=== PATIENT | male | born 1950 | race Caucasian/White ===

== ENCOUNTER → 2017-04-16 | Outpatient (CLI) | payer OTHER | LOC: RAD 14:09 | DX: J44.9 Chronic obstructive pulmonary disease, unspecified (principal) ==

== ENCOUNTER → 2018-07-13 | Outpatient (CLI) | payer OTHER ==
--- NOTE | ~2018-07-13 | 2DMMODE ---
[facility] [place] [address] 2 D/M-MODE ECHOCARDIOGRAM Name: MAYA SHUKLA Room #: REG [facility]#: [id number] Admission: 07/13/18 Attend Phys: Gumaro Hutchinson MD Discharge: Date of : 48 Date of Service: 07/13/18 1151 Report #: [id number] THIS REPORT FOR: //name// APPROVED REPORT Study performed: 07/13/2018 10:43:30 EXAM: Comprehensive 2D, Doppler, and color-flow Echocardiogram Patient Location: Out-Patient Room #: Echo lab 2 Status: routine BSA: 2.29 HR: 72 bpm Other Information Study Quality: Fair Indications Atrial Fibrillation CAD Hypertension/HDD Volumes Left Atrial Volume (Systole) Single Plane 4CH: 59.80 mL Single Plane 2CH: 67.85 mL LA ESV Index: 33.00 mL/m2 Aortic Valve AoV Peak Junior.: 1.39 m/s AO Peak Gr.: 7.69 mmHg LVOT Max P.99 mmHg LVOT Max V: 1.00 m/s Mitral Valve E/A Ratio: 0.7 MV Decel. Time: 269.43 ms MV E Max Junior.: 0.73 m/s MV A Junior.: 1.02 m/s MV PHT: 78.13 ms IVRT: 115.34 ms Pulmonary Valve PV Peak Junior.: 0.95 m/s PV Peak Gr.: 3.61 mmHg Pulmonary Vein [facility] [address] [place] [address] 2 D/M-MODE ECHOCARDIOGRAM Name: VAZQUEZMAYA Room #: REG CL [facility]#: [id number] Admission: 07/13/18 Attend Phys: Gumaro Hutchinson MD Discharge: Date of : 48 Date of Service: 07/13/18 1151 Report #: [id number] P Vein S: 0.38 m/s P Vein A: 0.24 m/s P Vein D: 0.35 m/s P Vein A Dur.: 115.3 msec P Vein S/D Ratio: 1.09 Left Ventricle The left ventricle is normal size. There is normal LV segmental wall motion. There is normal left ventricular wall thickness. The left ventricular systolic function is normal. The left ventricular ejection fraction is within the normal range. LVEF is 55-60%. Grade I - abnormal relaxation pattern. Right Ventricle The right ventricle is normal size. The right ventricular systolic function is normal. Atria Left atrium is at the upper limits of normal. The right atrium size is normal. Aortic Valve Aortic valve is calcified. The aortic valve is normal in structure. Mild aortic regurgitation. There is no aortic valvular stenosis. Mitral Valve The mitral valve is normal in structure. Mild mitral regurgitation. No evidence of mitral valve stenosis. Tricuspid Valve The tricuspid valve is normal in structure. There is no tricuspid valve regurgitation noted. Pulmonic Valve The pulmonary valve is normal in structure. There is no pulmonic valvular regurgitation. Great Vessels The aortic root is normal in size. The inferior vena cava is not well visualized. Pericardium There is no pericardial effusion. <Conclusion> The left ventricle is normal size. The left ventricular systolic function is normal. [facility] [address] [place] [address] 2 D/M-MODE ECHOCARDIOGRAM Name: MAYA SHUKLA Room #: REG [facility]#: [id number] Admission: 07/13/18 Attend Phys: Gumaro Hutchinson MD Discharge: Date of : 48 Date of Service: 07/13/18 115 Report #: [id number] Grade I - abnormal relaxation pattern. The right ventricle is normal size. Left atrium is at the upper limits of normal. Mild aortic regurgitation. Mild mitral regurgitation. <ELECTRONICALLY SIGNED> By: Gumaro Hutchinson MD 07/13/18 115 50 50 Gumaro Hutchinson MD /INF
== END ==
LOC: CV 08:46
DX: I08.0 Rheumatic disorders of both mitral and aortic valves (principal); I48.0 Paroxysmal atrial fibrillation; I25.10 Atherosclerotic heart disease of native coronary artery without angina pectoris; I10 Essential (primary) hypertension

== ENCOUNTER → 2019-08-13 | Outpatient (CLI) | payer OTHER | LOC: CAT 13:03 | DX: Z13.6 Encounter for screening for cardiovascular disorders (principal); E78.00 Pure hypercholesterolemia, unspecified; I25.10 Atherosclerotic heart disease of native coronary artery without angina pectoris ==

== ENCOUNTER → 2019-10-27 | Outpatient (CLI) | payer OTHER | LOC: NUC 08:15 → SJCVCIMAG 09:33 → NUC 13:21 | DX: I48.91 Unspecified atrial fibrillation (principal); R60.0 Localized edema; M79.604 Pain in right leg; M79.605 Pain in left leg ==

== ENCOUNTER → 2020-04-27 | Outpatient (CLI) | payer OTHER | LOC: SJCVCIMAG 08:48 | PROVIDERS: ATTEND Internal Medicine Cardiovascular Disease | DX: I71.4 Abdominal aortic aneurysm, without rupture (principal); I44.0 Atrioventricular block, first degree; I48.0 Paroxysmal atrial fibrillation; I10 Essential (primary) hypertension; E78.00 Pure hypercholesterolemia, unspecified; E66.9 Obesity, unspecified; G47.33 Obstructive sleep apnea (adult) (pediatric); Z99.89 Dependence on other enabling machines and devices; Z79.899 Other long term (current) drug therapy; Z87.891 Personal history of nicotine dependence ==

== ENCOUNTER → 2020-05-24 | Outpatient (CLI) | payer OTHER | LOC: SJCVC 13:30 | PROVIDERS: ATTEND Internal Medicine Cardiovascular Disease | DX: I44.0 Atrioventricular block, first degree (principal); I48.0 Paroxysmal atrial fibrillation; I10 Essential (primary) hypertension; E78.5 Hyperlipidemia, unspecified; J44.9 Chronic obstructive pulmonary disease, unspecified; E78.00 Pure hypercholesterolemia, unspecified; K21.9 Gastro-esophageal reflux disease without esophagitis; E66.9 Obesity, unspecified; Z79.82 Long term (current) use of aspirin; Z79.899 Other long term (current) drug therapy; Z87.891 Personal history of nicotine dependence ==

== ENCOUNTER → 2020-06-22 | Outpatient (CLI) | payer OTHER ==
[~2020-06-22] MED LIST: CHLORTHALIDONE25 MG PO; COQ-10100 MG PO; FISH OIL 1,0001 EAC9 PO; LIPITOR 20 MG T20 M1 PO; LITE COAT ASPI325 MG PO; LOPRESSOR50 MG PO; LOSARTAN POTAS100 MG PO; MAGNESIUM OXID200 MG PO; NORVASC5 MG PO; PROBIOTIC1 EAC7 PO; SUPER THERAVIT1 EACH PO; TOPROL XL50 MG PO; VITAMIN D3250 MC1 PO
== END ==
LOC: LAB 07:20
PROVIDERS: ATTEND Internal Medicine Cardiovascular Disease
DX: Z01.812 Encounter for preprocedural laboratory examination (principal); Z20.828 Contact with and (suspected) exposure to other viral communicable diseases

== ENCOUNTER → 2020-06-23 | Outpatient (CLI) | payer OTHER ==
[~2020-06-23] VITALS: Ht 177.8 cm; Wt 117.9 kg
[~2020-06-23] MED LIST changes: +B COMPLEX1 EACH PO; +CURCUMIN1 GM PO; +HOMOCYSTEINE F1 EACH PO; +N-ACETYL-L-CYS600 MG PO; +PEPCID20 MG PO; +PRADAXA150 MG PO; +UNICOMPLEX M TA1 TA1 PO; +VITAMIN C500 MG/15 PO
[2020-06-23 07:17] VITALS: BP 127/49
--- NOTE | 2020-06-23 07:40 | EKG ---
[facility] [place] [address] [place] [address] ELECTROCARDIOGRAM REPORT Name: MAYA SHUKLA Room #: REG [facility]#: [id number] Admission: 06/23/20 Attend Phys: Donny Oconnell MD, Discharge: Date of : 48 Report #: [id number] THIS REPORT FOR: cc: Robert Carter Louis D. DO Lundgren, Craig H. 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
--- NOTE | 2020-06-23 14:05 | NUR ---
late entry: PT ARRIVES AT 0645 FOR ROM/CARDIOVERSION. PT PLACED ON MONITOR AND NOTICED TO BE IN NSR. EKG DONE FOR CONFIRMATION. DR. NEVILLE NOTIFIED. PROCEDURE CANCELLED.
== END | disposition home or self-care (01) ==
LOC: CATH 06:29
PROVIDERS: ATTEND Internal Medicine
DX: I48.0 Paroxysmal atrial fibrillation (principal); Z53.8 Procedure and treatment not carried out for other reasons; I10 Essential (primary) hypertension; J44.9 Chronic obstructive pulmonary disease, unspecified; E78.5 Hyperlipidemia, unspecified; G47.33 Obstructive sleep apnea (adult) (pediatric); E66.09 Other obesity due to excess calories; K21.9 Gastro-esophageal reflux disease without esophagitis; Z98.890 Other specified postprocedural states; Z79.899 Other long term (current) drug therapy; Z87.891 Personal history of nicotine dependence; Z82.49 Family history of ischemic heart disease and other diseases of the circulatory system

== ENCOUNTER → 2020-06-28 | Outpatient (CLI) | payer OTHER ==
[~2020-06-28] MED LIST changes: -B COMPLEX1 EACH PO; -CURCUMIN1 GM PO; -HOMOCYSTEINE F1 EACH PO; -N-ACETYL-L-CYS600 MG PO; -PEPCID20 MG PO; -PRADAXA150 MG PO; -UNICOMPLEX M TA1 TA1 PO; -VITAMIN C500 MG/15 PO
== END ==
LOC: SJCVCIMAG 07:20
PROVIDERS: ATTEND Internal Medicine Cardiovascular Disease
DX: I08.0 Rheumatic disorders of both mitral and aortic valves (principal); I10 Essential (primary) hypertension; I48.0 Paroxysmal atrial fibrillation; J44.9 Chronic obstructive pulmonary disease, unspecified; Z79.899 Other long term (current) drug therapy; Z87.891 Personal history of nicotine dependence

== ENCOUNTER → 2020-07-03 | Outpatient (CLI) | payer OTHER | LOC: LAB 13:46 | PROVIDERS: ATTEND Internal Medicine Cardiovascular Disease | DX: Z01.812 Encounter for preprocedural laboratory examination (principal); Z20.828 Contact with and (suspected) exposure to other viral communicable diseases ==

== ENCOUNTER → 2020-07-03 | Outpatient (CLI) | payer OTHER ==
[~2020-07-03] MED LIST changes: +B COMPLEX1 EACH PO; +CURCUMIN1 GM PO; +HOMOCYSTEINE F1 EACH PO; +N-ACETYL-L-CYS600 MG PO; +PEPCID20 MG PO; +PRADAXA150 MG PO; +UNICOMPLEX M TA1 TA1 PO; +VITAMIN C500 MG/15 PO
== END ==
LOC: LAB 09:25
PROVIDERS: ATTEND Internal Medicine Cardiovascular Disease
DX: Z01.810 Encounter for preprocedural cardiovascular examination (principal); M43.8X4 Other specified deforming dorsopathies, thoracic region; I48.91 Unspecified atrial fibrillation

== ENCOUNTER 2020-07-07 06:30 | Observation (INO) | payer OTHER ==
[~2020-07-07] VITALS: Ht 177.8 cm; Wt 117.9 kg
--- NOTE | ~2020-07-07 | P ---
[facility] [place] [address] [place] [address] PROCEDURE REPORT Name: MAYA SHUKLA Room #: 218-P [facility]..#: [id number] Admission: 07/07/20 Attend Phys: Charanjit Ford MD Discharge: Date of : 48 Report #: [id number] THIS REPORT FOR: cc: Robert Carter,Robert Dooley,Charanjit Christian MD ~ CC: Robert Ford PREOPERATIVE DIAGNOSES: 1. Atrial fibrillation. 2. Atrial flutter. POSTOPERATIVE DIAGNOSES: 1. Atrial fibrillation. 2. Atrial flutter. HISTORY: The patient is a 70-year-old male with a history of AFib and atrial flutter, status [facility], who has been having recurrent episodes, presented to clinic in atrial flutter and is here for an AFib ablation. Preprocedural CT scan shows normal ejection fraction. He is here for AFib, A flutter ablation. PROCEDURES PERFORMED: 1. AFib ablation, CPT code 61148. 2. 3D mapping, CPT code 65852. 3. Intracardiac echo, CPT code 00564. 4. Second pathway ablation, CPT code 78352. ANESTHESIA: The patient underwent general anesthesia with no anesthesia related complications. DESCRIPTION OF PROCEDURE: The patient underwent informed consent. We discussed the details of the procedure including the risks, which include but not limited to bleeding, vascular damage, stroke, [place] as well as cardiac perforation. He understood these risks and is willing to proceed. The patient was brought to EP laboratory in a fasting and sedated state, prepped and draped in a sterile fashion. I obtained access to the right femoral vein x 3, placing an 8, 9 and 7-Hebrew short sheath using the modified Seldinger technique. Next, under fluoroscopy, I placed a decapolar catheter easily in the coronary sinus and ICE catheter into the right atrium. Using intracardiac ultrasound, there was evidence of a nice thin interatrial septum. Two left veins that were in close proximity and 3 right sided veins with a right middle vein. Using CartoSound 3D geometry was created and this was merged with the patient's cardiac CT scan. At baseline, the patient was in sinus rhythm. Next, the patient was systemically heparinized and a transseptal was performed using [facility] [address] [place] [address] PROCEDURE REPORT Name: MAYA SHUKLA Room #: 218-P [facility]..#: [id number] Admission: 07/07/20 Attend Phys: Charanjit Ford MD Discharge: Date of : 48 Report #: [id number] an SL1 sheath and a Montandon needle. This was straightforward and I exchanged SL1 sheath for the cryo sheath and placed the Lasso catheter in the left atrium. A 3D geometry of the left atrium was created using the Lasso catheter and a voltage map was also created showing that all veins were connected, although there appeared to be a delay in a lot of the veins. Next, the cryoballoon was placed into the left atrium and we started isolating the veins. The left superior pulmonary vein underwent a 4-minute, followed by 3-minute freeze. This vein isolated within 30 seconds of the first freeze, the left inferior pulmonary vein underwent a 4-minute, followed by a 3-minute freeze. The vein isolated during the first freeze. The right superior pulmonary vein underwent a single 4-minute freeze and isolated within 40 seconds. The right middle pulmonary vein underwent a 180 second freeze and appeared isolated. The right inferior pulmonary vein also underwent a single 4-minute freeze and this isolated within 30 seconds. Next, a repeat voltage map was created and there was now wide circumferential ablation of the pulmonary veins. Basic EP study was performed and AV block was noted at 400 milliseconds. AV courtney ERP was noted 280 milliseconds at [address] cycle length. With aggressive atrial burst pacing, the patient would have short runs of atrial flutter that were self-terminating. Given his history of recent atrial flutter, we proceeded with atrial flutter ablation in the right atrium. I utilized an 8 mm ablation catheter via a ramp sheath. Ablation was performed at 70 garner and 60 degrees. Pre-ablation, the transisthmus conduction time was 65 milliseconds. Post-ablation, the transisthmus conduction was 135 milliseconds with an activation sequence consistent with bidirectional block. The patient remained in sinus rhythm and the procedure was concluded. There was no evidence of pericardial effusion. The patient received systemic protamine and once ACT was within acceptable range, catheters and sheaths were pulled and hemostasis was obtained. The patient awoke neurologically and hemodynamically intact. No complications and no significant bleeding. CONCLUSIONS: 1. Successful AFib ablation with isolation of the pulmonary veins. 2. Successful atrial flutter ablation with evidence of bidirectional block. By: [id number] Charanjit Ford MD /nt
[~2020-07-07 06:30] MED LIST changes: -B COMPLEX1 EACH PO; -CURCUMIN1 GM PO; -HOMOCYSTEINE F1 EACH PO; -N-ACETYL-L-CYS600 MG PO; -PEPCID20 MG PO; -PRADAXA150 MG PO; -UNICOMPLEX M TA1 TA1 PO; -VITAMIN C500 MG/15 PO
[2020-07-07 07:33] VITALS: BP 153/63
[2020-07-07 07:38] LABS: HEMATOCRIT 44.1 % (42.0-52.0); HEMOGLOBIN 14.7 gm/dL (14.0-18.0); MCH 32.3 pg (26.0-34.0); MCHC 33.3 g/dL (28.0-37.0); PLATELET COUNT 169 thou/uL (150-400); RBC 4.55 mil/uL (4.50-6.00); RDW 15.2 % (10.5-14.5); WBC 6.6 thou/uL (4.0-11.0)
[2020-07-07 07:44] LABS: CALCIUM 9.8 mg/dL (8.5-10.1); CREATININE 1.3 mg/dL (0.7-1.3); POTASSIUM 3.6 mmol/L (3.5-5.1)
[2020-07-07 07:50] LABS: ALBUMIN 3.2 g/dL (3.4-5.0); APTT 33.1 Seconds (24.5-32.8); INR 1.1; PROTIME 11.1 Seconds (9.3-11.4); TOTAL BILIRUBIN 0.9 mg/dL (0.2-1.0); TOTAL PROTEIN 8.1 g/dL (6.4-8.2)
[2020-07-07] MEDS ORDERED: PEPCID20 MG PO (08:45)
[2020-07-07] MEDS ORDERED: PRADAXA150 MG PO (08:45)
[2020-07-07] MEDS ORDERED: CHLORTHALIDONE25 MG PO (08:51)
[2020-07-07] MEDS ORDERED: UNICOMPLEX M TA1 TA1 PO (08:52)
[2020-07-07] MEDS ORDERED: CURCUMIN1 GM PO (08:58)
[2020-07-07] MEDS ORDERED: VITAMIN C500 MG/15 PO (09:01)
[2020-07-07] MEDS ORDERED: N-ACETYL-L-CYS600 MG PO (09:06)
[2020-07-07] MEDS ORDERED: HOMOCYSTEINE F1 EACH PO (09:07)
[2020-07-07] MEDS ORDERED: PROBIOTIC1 EAC7 PO (09:08)
[2020-07-07] MEDS ORDERED: B COMPLEX1 EACH PO (09:11)
[2020-07-07 10:07] LABS: ABSOLUTE NEUTROPHILS 3.4 thou/uL (1.4-8.2)
[2020-07-07 10:08] LABS: ANISOCYTOSIS 1+
[2020-07-07 15:32] VITALS: BP 141/86
--- NOTE | 2020-07-07 18:36 | NUR ---
PT TO THE UNIT POST ABLATION. ORIENTED TO ROOM AND BEDSPACE. ASSESSMENT CHARTED. VSS AND GROIN SITE STABLE POST PROCEDURE. PT COMPLETED BEDREST AND IS MOVING AROUND IN BED AND GROIN REMAINS STABLE. SHANE DIET AND FLUIDS. NO CO'S OF PAIN OR NAUSEA. STATES COMFORTABLE AT THE PRESENT TIME.
[2020-07-07 19:18] VITALS: BP 124/80
[2020-07-08 05:29] VITALS: BP 147/70
--- NOTE | 2020-07-08 06:07 | NUR ---
ASSUMED CARE FROM DAY SHIFT PT RESTING IN BED DENIES SOA OR CHEST PAIN RIGHT GROIN WITH SWELLING OR REDDNESS. FISH TRAPPER SR FIRST DEGREE AVB.KASHMIR CAMEJO THIS AM, WILL CONINTUE TO MONITOR OUTPUT. WILL REPORT CHANGES OR ABNORMAL FINDINGS.
--- NOTE | 2020-07-08 06:35 | NUR ---
[facility] DISCONINTUE AT 0600 . PT DRINKING WATER, NO CHANGES NOTED IN PT ASSESSMENT.
[2020-07-08 08:46] VITALS: BP 151/89
[2020-07-08 11:22] VITALS: BP 151/89
--- NOTE | 2020-07-08 12:16 | NUR ---
ASSESSMENT CHARTED. PT ALERT AND ORIENTED. VSS. DENIED HAVING PAIN OR DISCOMFORT. ORDERS GIVEN TO DISCHARGE PT TO HOME. DISCHARGE INSTRUCTIONS GIVEN TO PT. PT VERBERLISED UNDERSTANDING.
== END 2020-07-08 12:18 | disposition home or self-care (01) ==
LOC: CATH 06:30 → 2N 11:56 → CATH 12:08 → 2N 07-08 12:18
PROVIDERS: ADMIT Internal Medicine Cardiovascular Disease; ATTEND Internal Medicine Cardiovascular Disease
DX: I48.91 Unspecified atrial fibrillation (principal); I48.92 Unspecified atrial flutter; I10 Essential (primary) hypertension; E78.5 Hyperlipidemia, unspecified; J44.9 Chronic obstructive pulmonary disease, unspecified; G47.33 Obstructive sleep apnea (adult) (pediatric); E66.9 Obesity, unspecified; G89.29 Other chronic pain; M54.9 Dorsalgia, unspecified; Z79.82 Long term (current) use of aspirin; Z79.899 Other long term (current) drug therapy
CPT/HCPCS: 62110; 62900; 65020; 65131; 70005

== ENCOUNTER → 2020-10-05 | Outpatient (CLI) | payer OTHER ==
[~2020-10-05] MED LIST changes: +B COMPLEX1 EACH PO; +CURCUMIN1 GM PO; +HOMOCYSTEINE F1 EACH PO; +N-ACETYL-L-CYS600 MG PO; +PEPCID20 MG PO; +PRADAXA150 MG PO; +UNICOMPLEX M TA1 TA1 PO; +VITAMIN C500 MG/15 PO
== END ==
LOC: SJCVC 13:36
PROVIDERS: ATTEND Internal Medicine Cardiovascular Disease
DX: I44.0 Atrioventricular block, first degree (principal); I48.0 Paroxysmal atrial fibrillation; I11.9 Hypertensive heart disease without heart failure; G47.33 Obstructive sleep apnea (adult) (pediatric); I48.3 Typical atrial flutter; E78.5 Hyperlipidemia, unspecified; J44.9 Chronic obstructive pulmonary disease, unspecified; G89.29 Other chronic pain; Z79.82 Long term (current) use of aspirin; Z79.899 Other long term (current) drug therapy; Z87.891 Personal history of nicotine dependence; Z72.89 Other problems related to lifestyle; Z90.89 Acquired absence of other organs; Z98.890 Other specified postprocedural states

== ENCOUNTER → 2020-11-01 | Outpatient (CLI) | payer OTHER | LOC: SJCVCIMAG 08:44 | PROVIDERS: ATTEND Internal Medicine Cardiovascular Disease | DX: I77.819 Aortic ectasia, unspecified site (principal); I48.0 Paroxysmal atrial fibrillation; I10 Essential (primary) hypertension; E78.00 Pure hypercholesterolemia, unspecified; J44.9 Chronic obstructive pulmonary disease, unspecified; G47.33 Obstructive sleep apnea (adult) (pediatric); E66.9 Obesity, unspecified; R60.9 Edema, unspecified; K21.9 Gastro-esophageal reflux disease without esophagitis; E78.5 Hyperlipidemia, unspecified; R60.0 Localized edema; Z68.39 Body mass index [BMI] 39.0-39.9, adult; Z79.899 Other long term (current) drug therapy; Z87.891 Personal history of nicotine dependence; Z79.82 Long term (current) use of aspirin ==

== ENCOUNTER → 2021-01-03 | Outpatient (CLI) | payer OTHER | LOC: SJCVC 13:09 | PROVIDERS: ATTEND Internal Medicine Cardiovascular Disease | DX: I48.0 Paroxysmal atrial fibrillation (principal); E78.5 Hyperlipidemia, unspecified; I10 Essential (primary) hypertension; J44.9 Chronic obstructive pulmonary disease, unspecified; G89.29 Other chronic pain; E66.9 Obesity, unspecified; G47.33 Obstructive sleep apnea (adult) (pediatric); I48.92 Unspecified atrial flutter; I25.10 Atherosclerotic heart disease of native coronary artery without angina pectoris; K21.9 Gastro-esophageal reflux disease without esophagitis; E78.00 Pure hypercholesterolemia, unspecified; Z98.890 Other specified postprocedural states; Z79.899 Other long term (current) drug therapy; Z87.891 Personal history of nicotine dependence; Z82.49 Family history of ischemic heart disease and other diseases of the circulatory system ==

== ENCOUNTER → 2021-02-16 | Outpatient (CLI) | payer OTHER | LOC: SJCVC 09:24 | PROVIDERS: ATTEND Internal Medicine Cardiovascular Disease | DX: I49.3 Ventricular premature depolarization (principal); I48.0 Paroxysmal atrial fibrillation; I10 Essential (primary) hypertension; E78.00 Pure hypercholesterolemia, unspecified; R60.9 Edema, unspecified; H34.8112 Central retinal vein occlusion, right eye, stable; J44.9 Chronic obstructive pulmonary disease, unspecified; I25.10 Atherosclerotic heart disease of native coronary artery without angina pectoris; Z79.899 Other long term (current) drug therapy; Z87.891 Personal history of nicotine dependence; Z72.89 Other problems related to lifestyle ==

== ENCOUNTER → 2021-03-26 | Outpatient (CLI) | payer OTHER ==
[~2021-03-26] MED LIST changes: +BYSTOLIC 5 MG5 MG PO; +MULTI VITAMIN1 EACH PO
[2021-03-26 11:38] LABS: HEMATOCRIT 42.2 % (42.0-52.0); HEMOGLOBIN 14.7 gm/dL (14.0-18.0); MCH 33.1 pg (26.0-34.0); MCHC 34.8 g/dL (28.0-37.0); MCV 95.1 fL (80.0-100.0); RBC 4.44 mil/uL (4.50-6.00); RDW 15.7 % (10.5-14.5); WBC 6.2 thou/uL (4.0-11.0)
[2021-03-26 11:45] LABS: URINE BILIRUBIN NEGATIVE (Negative); URINE BLOOD NEGATIVE (Negative); URINE CLARITY CLEAR; URINE COLOR YELLOW; URINE GLUCOSE-RANDOM* NEGATIVE (Negative); URINE KETONES NEGATIVE (Negative); URINE LEUKOCYTES-REFLEX NEGATIVE (Negative); URINE NITRITE-REFLEX NEGATIVE (Negative); URINE PROTEIN (DIPSTICK) NEGATIVE (Negative); URINE SPECIFIC GRAVITY >= 1.030 (1.005-1.035); URINE UROBILINOGEN 0.2 E.U./dl (0.2-1.0)
[2021-03-26 11:52] LABS: ALBUMIN 3.9 g/dL (3.4-5.0); CREATININE 1.3 mg/dL (0.7-1.3); INR 1.13; POTASSIUM 3.9 mmol/L (3.5-5.1); PROTIME 12.2 Seconds (10.5-12.1)
== END ==
LOC: PAC 06:35
PROVIDERS: ATTEND Orthopaedic Surgery
DX: M16.12 Unilateral primary osteoarthritis, left hip (principal)

== ENCOUNTER 2021-04-05 06:16 | Observation (INO) | payer OTHER ==
[~2021-04-05] VITALS: Ht 177.8 cm; Wt 117.9 kg
[2021-04-05 06:48] VITALS: BP 142/71
[2021-04-05 12:26] VITALS: BP 120/63
--- NOTE | 2021-04-05 13:28 | NUR ---
ASSUMED PT CARE AT 1220 FROM PACU. PT HAD L TOTAL HIP REPLACEMENT TODAY. PT IS ALERT & ORIENTED X4. PT HAS IV ON L WRIST SALINE LOCKED. PT HAS L HIP MICAELA DRESSING, BILATERAL THIGH HIGH NEAL HOSES, ICE PACK AND SCD. PT HAS SLEEP APNEA AND HAD CPAP MACHINE FROM HOME. FINISHED ADMISSION TODAY. PT SIGNIFICANT OTHER AT THE BEDSIDE. PT TOLERATED DIET WELL. PT ON THE BED, BED ON THE LOWEST POSITION, SIDE RAILS UP, CALL LIGHT WITHIN REACH. WILL CONTINUE TO MONITOR PT. FOLLOW POC.
--- NOTE | 2021-04-05 15:58 | NUR ---
ASSESSMENT: CM REVIEWED CHART. PT IS ALERT AND ORIENTED X4. PT IS S/P TOTAL HIP ARTHROPLASTY. PT REPORTS THAT HE CURRENTLY LIVES IN A CONDO ALONE. PT REPORTS HAVING A SIGNIFICANT OTHER BUT SHE LIVES IN [place]. PT REPORTS THAT HE IS HOPING HE WILL BE ABLE TO GO TO [facility] AT DISCHARGE AND THEN HIS SIGNIFICANT OTHER WILL STAY WITH HIM AFTER THAT UNTIL HE IS ABLE TO MANAGE ON HIS OWN. PT REPORTS HE HAS NO DME AT HOME. PT REPORTS THAT HE HAS NOT BEEN TO A SNF BEFORE AND HAS NOT HAD HH. PT REQUESTING REFERRAL TO [facility]. CM NOTIFIED [facility] AND ALSO THAT PATIENT IS NOT CURRENTLY INPATIENT AND SHE REPORTS THEY SHOULD BE ABLE TO ACCEPT HIM UNDER THE MEDICARE WAIVER. CM FAXED REFERRAL AND [facility] REPORTING THEY WILL LIKELY HAVE A BED OPEN ON FRIDAY. CM WILL CONTINUE TO FOLLOW TO ASSIST NEEDED.
[2021-04-05 17:36] VITALS: BP 115/63
[2021-04-05 20:05] VITALS: BP 123/71
--- NOTE | 2021-04-06 02:50 | NUR ---
ASSESSED AT START OF SHIFT, PT SITTING UP IN CHAIR. A&OX4. EVENING MEDS GIVEN AND PT SHANE IT WELL. URINAL BY BEDSIDE. OXYCODONE GIVEN FOR PAIN. ON 3L OF AND WEARS CPAP AT NIGHT TIME. HEMOVAC DRAIN IN PLACE 75CC OUTPUT AT START OF SHIFFT. ICE BAG IN PLACE AND CALL LIGHT AT REACH. WILL CONT WITH POC TILL EOS.
[2021-04-06 03:30] VITALS: BP 139/77
[2021-04-06 03:51] LABS: HEMATOCRIT 34.7 % (42.0-52.0); HEMOGLOBIN 11.9 gm/dL (14.0-18.0); MCH 32.5 pg (26.0-34.0); MCHC 34.2 g/dL (28.0-37.0); RBC 3.66 mil/uL (4.50-6.00); RDW 15.2 % (10.5-14.5); WBC 10.6 thou/uL (4.0-11.0)
[2021-04-06 07:45] VITALS: BP 132/37
[2021-04-06 08:31] LABS: ALBUMIN 3.2 g/dL (3.4-5.0); CALCIUM 8.7 mg/dL (8.5-10.1); CREATININE 1.5 mg/dL (0.7-1.3); MAGNESIUM 1.5 mg/dL (1.8-2.4); POTASSIUM 3.9 mmol/L (3.5-5.1); TOTAL BILIRUBIN 1.1 mg/dL (0.2-1.0); TOTAL PROTEIN 6.8 g/dL (6.4-8.2)
--- NOTE | 2021-04-06 09:02 | O ---
[facility] [place] [address] [place] [address] OPERATIVE REPORT Name: MAYA SHUKLA Room #: 446-P [facility].Ophelia#: [id number] Admission: 04/05/21 Attend Phys: Artem Salinas MD Discharge: Date of : 48 Report #: [id number] THIS REPORT FOR: cc: Robert Carter Louis D. DO Clymer, David J. MD ~ DATE OF SERVICE: 04/05/2021 PREOPERATIVE DIAGNOSIS: End-stage degenerative arthritis, left hip. PROCEDURE: Left total hip arthroplasty. SURGEON: Artem Salinas MD INDICATIONS: This 70-year-old gentleman complains of progressive left hip pain with limited range of motion and crepitus. Clinical exam and imaging studies confirm rather severe end-stage degenerative arthritis. He has tried conservative measures without much benefit and has decided to go ahead with left total hip replacement. DESCRIPTION OF PROCEDURE: The patient was taken to the operating room where he was placed under general anesthesia. Prophylactic intravenous antibiotics were administered. He was turned to the right lateral decubitus position. The left hip, thigh and leg were meticulously prepped and draped. A slightly curving posterolateral skin incision was made centered over the greater trochanter. This was carried through fascia and gluteus to expose the posterior aspect of the hip joint. The short external rotators and caps were taken down and preserved and tagged with several FiberWire sutures. The hip was dislocated posteriorly rather marked degenerative change on both the femoral head and acetabulum was noted. The femoral neck osteotomy was performed. The Saldaña and Nephew hip system was utilized. The femoral canal was opened with reamers and broaches and a size 17 press-fit Synergy stem seemed to fit nicely. The calcar was trimmed down to an appropriate level. The trial component was removed and attention directed to the acetabulum. Satisfactory exposure was established and the acetabulum was sequentially reamed, gradually advancing to a 60 mm diameter reamer. The Saldaña and Nephew size 60 outside diameter 3-hole StikTite shell was then selected. This was impacted into his true acetabulum in alignment with the true acetabulum, which positioned this at about 45 degrees off of vertical and about 20 degrees of anteversion. It seated nicely and appeared to be secure. In addition, 3 cancellous screws were placed through the apical holes engaging periacetabular bone and adding nicely to stability. A polyethylene liner was then snapped into place using the 40 mm inside diameter size and positioning the 20-degree elevated rim at about the 10 o'clock posterior position. The permanent Saldaña and Nephew size 17 Synergy porous high offset femoral component was then inserted placing this in about 20 degrees of anteversion. It seated nicely and appeared to be secured. A trial reduction was performed and the hip [facility] [address] [place] [address] OPERATIVE REPORT Name: VAZQUEZMAYA GAYTAN Room #: 446-P [facility]#: [id number] Admission: 04/05/21 Attend Phys: Artem Salinas MD Discharge: Date of : 48 Report #: [id number] seemed best suited for a +8 mm neck length using the 40 mm size head. The Saldaña and Nephew 40 mm modular head with a +8 mm neck length sleeve was then brought on to the field and impacted on to the Barber taper. The hip was reduced. Alignment, range of motion, stability and leg length were assessed and felt to be satisfactory. The capsule and short external rotators were repaired back to bone. A single Hemovac was left in the wound exiting through a separate stab incision. The fascia was closed with multiple #1 Vicryl sutures. The subcutaneous tissues were closed with 0 Monocryl and the skin was closed with skin patricio. A sterile dressing was applied. The patient was awakened and returned to recovery room in good condition. <ELECTRONICALLY SIGNED> By: Artem Salinas MD 04/06/21 0902 [id number] Artem Salinas MD /nt
--- NOTE | 2021-04-06 09:36 | NUR ---
ASSUMED PT CARE THIS AM. PT IS ALERT & ORIENTED X4. PT HAS IV SITE ON L WRIST SALINE LOCKED. PT HAS BILATERAL NEAL HOSES THIGH HIGH. PT TOLERATED MEDICATION AND DIET WELL. NO C/O OF NAUSEA AND VOMITING. PT WILL BE WORKING WITH PHYSICAL THERAPY LATER. EDUCATED MEDICATION AND BREATHING TREATMENT. PT HAS SLEEP APNEA AND USES CPAP AT NIGHT. WILL CONTINUE TO MONITOR PT. FOLLOW POC.
--- NOTE | 2021-04-06 14:02 | NUR ---
ON-GOING ASSESSMENT: cM REVIEWED CHART AND SPOKE WITH PATIENT. PT IS PROGRESSING WITH PHYSICAL THERAPY. PLANS ARE FOR A TENTATIVE DISCHARGE TOMORROW TO [facility] IF MEDICALLY STABLE. MANNY SPOKE WITH KULDIP NELSON AT ON LICENSE OF [facility] WHO REPORTS THEY HAVE A BED OPEN ON FRIDAY AND CAN DO A TENTATIVE DISCHARGE FRIDAY SCHEDULED FOR 1400 (TRANSPORTATION IS ALREADY ARRANGED) AND IF FOR ANY REASON IT NEEDS TO BE CANCELED CALL KULDIP NELSON AT [phone] TO CANCEL OR RESCHEDULE. CHART COPY WILL NEED TO BE SENT WITH PATIENT. FAX DISCHARGE ORDERS TO [facility] FAX:[phone] AND CALL REPORT TO :[phone]. PT WILL UPDATE HIS SIGNIFICANT OTHER.
[2021-04-06 16:20] VITALS: BP 104/69
[2021-04-06 19:38] VITALS: BP 104/69
--- NOTE | 2021-04-07 05:53 | NUR ---
Pt. rested quietly at intervals during the night when checked on during frequent rounds. Po pain meds given for c/o abdominal pain (see emar) with some relief of pain noted. Dressing to left hip is intact.
[2021-04-07 06:52] LABS: ABSOLUTE NEUTROPHILS 4.9 thou/uL (1.4-8.2); BASOPHILS 0.6 % (0.0-2.0); EOSINOPHILS 2.9 % (0.0-3.0); HEMATOCRIT 29.4 % (42.0-52.0); HEMOGLOBIN 10.4 gm/dL (14.0-18.0); LYMPHOCYTES 20.4 % (24.0-44.0); MCH 33.2 pg (26.0-34.0); MCHC 35.3 g/dL (28.0-37.0); MCV 94.2 fL (80.0-100.0); MONOCYTES 12.7 % (1.0-8.0); PLATELET COUNT 105 thou/uL (150-400); POLYS 63.4 % (36.0-66.0); RBC 3.13 mil/uL (4.50-6.00); RDW 15.1 % (10.5-14.5); WBC 7.7 thou/uL (4.0-11.0)
[2021-04-07 07:27] LABS: CALCIUM 7.7 mg/dL (8.5-10.1); CREATININE 1.1 mg/dL (0.7-1.3); MAGNESIUM 1.6 mg/dL (1.8-2.4); POTASSIUM 3.2 mmol/L (3.5-5.1)
[2021-04-07 08:18] VITALS: BP 143/68
--- NOTE | 2021-04-07 14:18 | NUR ---
IV OUT PATIENT LEFT WITH TRANSPORT.PAIN MEDICATION GIVEN
== END 2021-04-07 16:25 ==
LOC: OR 06:16 → TBA 09:51 → PRE 11:16 → 4S 11:54 → PRE 12:23 → EDSTATUS 14:17 → OR 20:01 → 4S 20:01
PROVIDERS: Nurse Practitioner; ADMIT Orthopaedic Surgery; ATTEND Orthopaedic Surgery
DX: M16.12 Unilateral primary osteoarthritis, left hip (principal); I48.92 Unspecified atrial flutter; I48.0 Paroxysmal atrial fibrillation; I10 Essential (primary) hypertension; J44.9 Chronic obstructive pulmonary disease, unspecified; M54.9 Dorsalgia, unspecified; G89.29 Other chronic pain; G47.30 Sleep apnea, unspecified; K21.9 Gastro-esophageal reflux disease without esophagitis; E78.5 Hyperlipidemia, unspecified; Z86.73 Personal history of transient ischemic attack (TIA), and cerebral infarction without residual deficits; Z87.891 Personal history of nicotine dependence; Z79.899 Other long term (current) drug therapy
CPT/HCPCS: 50010; 50101; 50382; 50414; 51412; 53000; 53367; 56521; 56525; 56530; 57095; 57103; 62110; 62900; 70005

== ENCOUNTER → 2021-05-23 | Outpatient (CLI) | payer OTHER | LOC: SJCVC 11:11 | PROVIDERS: ATTEND Internal Medicine Cardiovascular Disease | DX: I44.0 Atrioventricular block, first degree (principal); I48.0 Paroxysmal atrial fibrillation; I10 Essential (primary) hypertension; E78.00 Pure hypercholesterolemia, unspecified; R60.9 Edema, unspecified; H34.8112 Central retinal vein occlusion, right eye, stable; I71.4 Abdominal aortic aneurysm, without rupture; Z79.899 Other long term (current) drug therapy; Z87.891 Personal history of nicotine dependence; Z72.89 Other problems related to lifestyle ==